=== PATIENT | female | born 1960 | race Asian ===

== ENCOUNTER → 2017-04-23 | Outpatient (CLI) | payer OTHER | LOC: BRMIMAGING 15:50 | PROVIDERS: ATTEND Internal Medicine | DX: R20.2 Paresthesia of skin (principal); M06.9 Rheumatoid arthritis, unspecified | CPT/HCPCS: 72052-PO ==

== ENCOUNTER → 2017-05-07 | Outpatient (CLI) | payer OTHER | LOC: BRMIMAGING 15:18 | PROVIDERS: ATTEND Family Medicine | DX: Z12.31 Encounter for screening mammogram for malignant neoplasm of breast (principal) | CPT/HCPCS: G0202 ==

== ENCOUNTER → 2018-09-23 | Outpatient (CLI) | payer OTHER | LOC: BRMIMAGING 14:22 | PROVIDERS: ATTEND Family Medicine | DX: Z12.31 Encounter for screening mammogram for malignant neoplasm of breast (principal) ==